=== PATIENT | female | born 1965 ===

== ENCOUNTER 2024-02-12 19:05 | Emergency (ER) | payer OTHER ==
[2024-02-12] MEDS: Ketorolac 30 MG/ML SDV IM ONE (20:28)
== END 2024-02-12 21:10 | disposition home or self-care (01) ==
LOC: DL.ED 19:05
DX: S82.832A Other fracture of upper and lower end of left fibula, initial encounter for closed fracture (principal); E66.9 Obesity, unspecified; Z68.35 Body mass index [BMI] 35.0-35.9, adult; W18.40XA Slipping, tripping and stumbling without falling, unspecified, initial encounter
CPT/HCPCS: 73610-LT; 73620-LT; 96372; 99283; J1885